=== PATIENT | female | born 1945 | race Caucasian/White ===

== ENCOUNTER 2025-08-29 20:31 | Emergency (ER) | payer MEDICARE ==
[~2025-08-29] VITALS: Ht 160 cm; Wt 84.1 kg
[2025-08-29] MEDS: ALBUTEROL SULFATE 2.5 MG/0.5 ML INH CONCENTRATE NEB SOLN INH ONE (18:10)
[2025-08-29] MEDS: LIDOCAINE 2% 5 ML JELLY UROJET TOP ONE (18:10)
[2025-08-29] MEDS: IPRATROPIUM 0.5 MG/ALBUTEROL 2.5 MG INH SOL UD 3 ML INH ONE (18:10)
[2025-08-29] MEDS: PIPERACILLIN/TAZOBACTAM SOD 4.5 GM in DEXTROSE 5% (D5W) ADV/MINI-BAG 50 ML IV ONE (18:50)
[2025-08-29] MEDS: ASPIRIN 81 MG CHEWABLE TABLET PO ONE (19:20)
[~2025-08-29 20:31] MED LIST: ISOVUE-370 76% 100 ML VIAL ONE
[2025-08-29 23:00] LABS: CK-MB VALUE MASS 3.6 NG/ML (<3.6)
[2025-08-29 23:13] LABS: CPK CREATINE PHOSPHOKINASE 62.0 U/L (34-145); MB/CK RELATIVE INDEX 5.8 (< OR =4)
[2025-08-29 23:42] LABS: CK-MB VALUE MASS 3.7 NG/ML (<3.6)
[2025-08-29 23:44] LABS: CPK CREATINE PHOSPHOKINASE 57.0 U/L (34-145); MB/CK RELATIVE INDEX 6.49 (< OR =4)
[2025-08-29] MEDS ORDERED: HEPARIN SOD 5000 UNITS/ML 1 ML VIAL/SYRINGE IV PRN (23:55)
[2025-08-30] MEDS: HEPARIN DRIP 25,000 UNITS in IV 1 EA IV SCH (00:17)
[2025-08-30] MEDS: ATORVASTATIN 20 MG TAB PO ONE (01:13)
[2025-08-30 01:30] VITALS: BP 156/90; TEMP 98.1; O2SAT 90
[2025-08-30] MEDS ORDERED: ETHACRYNIC ACID 25 MG TAB PO SCH (09:00)
== END 2025-08-30 01:31 | disposition short-term general hospital (02) ==
LOC: M ED 20:31
DX: I21.4 Non-ST elevation (NSTEMI) myocardial infarction (principal); J96.00 Acute respiratory failure, unspecified whether with hypoxia or hypercapnia; J18.9 Pneumonia, unspecified organism; I45.4 Nonspecific intraventricular block; I45.81 Long QT syndrome; R00.0 Tachycardia, unspecified; E11.9 Type 2 diabetes mellitus without complications; I10 Essential (primary) hypertension; E55.9 Vitamin D deficiency, unspecified; Z86.79 Personal history of other diseases of the circulatory system; Z87.891 Personal history of nicotine dependence; Z88.0 Allergy status to penicillin; Z88.2 Allergy status to sulfonamides; Z88.1 Allergy status to other antibiotic agents; Z90.89 Acquired absence of other organs
CPT/HCPCS: 70450; 71045; 71275; 74177; 82550; 82553; 83605; 84484; 86850; 86900; 86901; 94660; 96374; 96375; 99285; J2543; J2919; Q9967